=== PATIENT | male | born 1960 | race Caucasian/White ===

== ENCOUNTER 2023-05-21 05:30 | Inpatient (IN) | payer BC ==
[~2023-05-21] VITALS: Ht 180.3 cm; Wt 102.1 kg
[2023-05-21] MEDS ORDERED: CELECOXIB 100 MG CAPSULE ONE (05:40)
[2023-05-21] MEDS ORDERED: ACETAMINOPHEN 500 MG TABLET ONE (05:40)
[2023-05-21] MEDS ORDERED: GABAPENTIN 300 MG CAPSULE ONE (05:43)
[2023-05-21] MEDS ORDERED: SCOPOLAMINE HYDROBROMIDE 1 MG PATCH .72 H (TRANSDERM-SCOP) TD ONE ×2 (05:43→06:00)
[2023-05-21] MEDS ORDERED: oxyCODONE HCL 10 MG TAB.ER.12H PO ONE ×2 (05:44→06:00)
[2023-05-21] MEDS ORDERED: ACETAMINOPHEN 500 MG TABLET PO ONE (06:00)
[2023-05-21] MEDS ORDERED: CELECOXIB 100 MG CAPSULE PO ONE (06:00)
[2023-05-21] MEDS ORDERED: GABAPENTIN 300 MG CAPSULE PO ONE (06:00)
[2023-05-21] MEDS ORDERED: CEFAZOLIN SOD 2 GM in D5W 50 ML IV ONE (07:00)
[2023-05-21] MEDS ORDERED: LR 1,000 ML IV.SOLN IV ONE (07:05)
[2023-05-21] MEDS ORDERED: TRANEXAMIC ACID 1,000 MG/10 ML VIAL ONE (07:05)
[2023-05-21] MEDS ORDERED: NS IRRIG SOLN 1000 ML IR ONE (07:05)
[2023-05-21] MEDS ORDERED: NS 1000 ML IV.SOLN IV ONE (07:05)
[2023-05-21] MEDS ORDERED: PROPOFOL 200MG/ 20ML VIAL (DIPRIVAN) IV ONE ×2 (07:05)
[2023-05-21] MEDS ORDERED: VANCOMYCIN HCL 1000 MG/VIAL IV ONE (07:05)
[2023-05-21] MEDS ORDERED: KETOROLAC TROMETHAMINE 30 MG VIAL ONE (07:05)
[2023-05-21] MEDS ORDERED: BUPIVACAINE /PF 0.25% 30 ML VIAL INJ ONE (07:05)
[2023-05-21] MEDS ORDERED: DEXAMETHASONE SOD PHOSPHATE 4 MG/ML VIAL ONE (07:05)
[2023-05-21] MEDS ORDERED: MIDAZOLAM HCL/PF 2 MG/2 ML SYRINGE ONE (07:05)
[2023-05-21] MEDS ORDERED: LIDOCAINE 2%, 20 ML MDV ONE (07:05)
[2023-05-21] MEDS ORDERED: ONDANSETRON HCL 4 MG/2 ML VIAL ONE (07:05)
[2023-05-21] MEDS ORDERED: WATER FOR IRRIGATION,STERILE 1,000 ML IRRIG.SOLN IR ONE (07:05)
[2023-05-21] MEDS ORDERED: DIPHENHYDRAMINE HCL 25 MG CAPSULE PO PRN (07:15)
[2023-05-21] MEDS ORDERED: BISACODYL 10 MG/SUPPOSITORY RC PRN (07:15)
[2023-05-21] MEDS ORDERED: METOCLOPRAMIDE HCL 10 MG/2 ML VIAL IVP PRN ×2 (07:15→08:00)
[2023-05-21] MEDS ORDERED: NALOXONE HCL 0.4 MG/ML AMP (NARCAN) IVP PRN ×4 (07:15→08:15)
[2023-05-21] MEDS ORDERED: LACTULOSE 20 GM/30 ML UDC PO PRN (07:15)
[2023-05-21] MEDS ORDERED: LR 1,000 ML IV SCH (08:00)
[2023-05-21] MEDS ORDERED: MIDAZOLAM HCL 2 MG/2 ML VIAL (VERSED) IVP PRN (08:00)
[2023-05-21] MEDS ORDERED: HYDROmorphone 1 MG/ML INJ. CARTRIDGE IVP PRN ×5 (08:00→11:00)
[2023-05-21] MEDS ORDERED: MEPERIDINE HCL/PF 25 MG/ML DISP.SYRIN IVP PRN (08:00)
[2023-05-21] MEDS ORDERED: DIPHENHYDRAMINE INJ 50 MG/ML VIAL IVP PRN (08:15)
[2023-05-21] MEDS ORDERED: ONDANSETRON HCL 4 MG/2 ML VIAL IVP PRN ×2 (08:15→11:45)
[2023-05-21] MEDS ORDERED: DECADRON 4 MG TABLET PO SCH (09:00)
[2023-05-21] MEDS ORDERED: LORATADINE 10 MG TABLET PO PRN (11:00)
[2023-05-21] MEDS ORDERED: traMADol HCL HCL 50 MG TABLET (ULTRAM) PO PRN (11:00)
[2023-05-21] MEDS ORDERED: oxyCODONE HCL 5 MG TABLET PO PRN ×2 (11:00)
[2023-05-21] MEDS ORDERED: CEFA250S32 PO (12:09)
[2023-05-21] MEDS ORDERED: MULT-1117 PO (12:09)
[2023-05-21] MEDS ORDERED: OMEG-158 PO (12:09)
[2023-05-21 12:17] VITALS: BP_SYST 130; PULSE 61; RESP 18; TEMP 97.8; O2SAT 95
[2023-05-21 12:28] VITALS: BP_SYST 130; PULSE 60; RESP 18; TEMP 97.9; O2SAT 95
[2023-05-21] MEDS ORDERED: KETOROLAC TROMETHAMINE 10 MG TABLET (TORADOL) PO SCH (14:00)
[2023-05-21] MEDS ORDERED: TAMSULOSIN HCL 0.4 MG CAP PO ONE (14:00)
[2023-05-21] MEDS ORDERED: ACETAMINOPHEN 500 MG TABLET PO SCH (14:00)
[2023-05-21 16:00] VITALS: BP_SYST 131; PULSE 80; RESP 16; TEMP 97.5; O2SAT 95
[2023-05-21] MEDS: ceFAZolin SODIUM 2 GM in D5W 50 ML IV SCH ×2 (16:04→16:44)
[2023-05-21] MEDS ORDERED: ASA81 PO (18:05)
[2023-05-21 18:26] VITALS: BP_SYST 133; PULSE 83; RESP 18; TEMP 97.8; O2SAT 96
[2023-05-21] MEDS ORDERED: SENNOSIDES/DOCUSATE SODIUM 1 TAB TABLET(SENOKOT-S) PO SCH (21:00)
[2023-05-22] MEDS ORDERED: ASPIRIN 81 MG TAB.CHEW PO SCH (09:00)
[2023-05-22] MEDS ORDERED: TAMSULOSIN HCL 0.4 MG CAP PO SCH (09:00)
[2023-05-22] MEDS ORDERED: CELECOXIB 200 MG CAPSULE PO SCH (11:00)
== END 2023-05-21 18:50 | disposition home health service (06) | DRG 468 ==
LOC: SMU 05:30
PROVIDERS: ADMIT Student in an Organized Health Care Education/Training Program; ATTEND Student in an Organized Health Care Education/Training Program
PROC: 0SPC0JZ Removal of Synthetic Substitute from Right Knee Joint, Open Approach (ICD-10-PCS; 2023-05-21)
PROC: 0SRC0J9 Replacement of Right Knee Joint with Synthetic Substitute, Cemented, Open Approach (ICD-10-PCS; principal; 2023-05-21 07:15)
DX: M17.11 Unilateral primary osteoarthritis, right knee (principal)
CPT/HCPCS: 73560-TC; 87081; 88305; 88311; 96379; 97116-GP; 97530-GP; J0690; J1100; J1885; J2001; J2405; J2704; J3370; J3465; J3490; J7030; J7060; J7120